=== PATIENT | female | born 1965 | race Caucasian/White ===

== ENCOUNTER → 2016-09-13 | Outpatient (CLI) | payer OTHER ==
[~2016-09-13] VITALS: Ht 163.8 cm; Wt 63.5 kg
[~2016-09-13] MED LIST: CLARITIN,ALAVAR10 MG PO; ESCITALOPRAM OX10 MG PO; ESTRADIOL1 MG PO; EYE DROPS15 M2 BOTH EYES; FISH OIL 1,0001 EAC7 PO; FLAX SEED OIL1 EACH PO; KEFLEX500 MG PO; LEVOTHYROXINE25 MCG PO; LEXAPRO10 MG PO; NAPROSYN500 MG PO; NASONEX17 GM BOTH NARES; ONE DAILY WOME1 EACH PO; RESTASIS 01 DROP/0.4 BOTH EYES; SENOKOT,SENN1 TABLET PO; TAZORAC TP; ULTRAM50 MG PO
== END | disposition home or self-care (01) ==
LOC: AMB 09:08
DX: K64.8 Other hemorrhoids (principal); Z12.11 Encounter for screening for malignant neoplasm of colon; M19.90 Unspecified osteoarthritis, unspecified site; Z88.0 Allergy status to penicillin; Z88.2 Allergy status to sulfonamides; Z82.49 Family history of ischemic heart disease and other diseases of the circulatory system; Z83.3 Family history of diabetes mellitus; Z80.1 Family history of malignant neoplasm of trachea, bronchus and lung; Z80.3 Family history of malignant neoplasm of breast
CPT/HCPCS: J3010